=== PATIENT | female | born 1970 | race African-American/Black ===

== ENCOUNTER 2017-07-15 20:34 | Emergency (ER) | payer MEDICAID, OTHER ==
[~2017-07-15] VITALS: Ht 172.7 cm; Wt 123.4 kg
[2017-07-15] MEDS ORDERED: INSULIN SQ (20:51)
[2017-07-15] MEDS ORDERED: METFORMIN HCL1000 M1 ORAL (20:51)
[2017-07-15] MEDS ORDERED: GLIPIZIDE5 MG ORAL (20:51)
[2017-07-15 21:05] VITALS: BP 136/87
--- NOTE | 2017-07-15 21:11 | Emergency Room Report ---
History of Present Illness General Chief Complaint: Skin Rash/Abscess Source: Patient Present Illness HPI Patient presented for evaluation of left back lesion Patient reports that she had the area incised and packed on Saturday At any other facility Patient is on antibiotics which include Bactrim Patient reports that she had accidentally pulled on the packing and wasn't sure the status of the packing Pain is 5/10 with touch otherwise denies any fevers Patient also reported whitish discharge on her tongue which at this time is not present Denies any neck pain or photophobia Allergies: Coded Allergies: No Known Allergies (Unverified , 07/15/17) Patient History Past Medical History: see triage record Pertinent Family History: none Last Menstrual Period: menopause Reviewed Nursing Documentation: PMH: Agreed, PSxH: Agreed Nursing Documentation-PMH Hx Diabetes: Yes Review of Systems All Other Systems: negative except mentioned in HPI Physical Exam Vital Signs Date Time Temp Pulse Resp B/P (MAP) Pulse Ox O2 Delivery O2 Flow Rate FiO2 07/15/17 20:44 98.1 95 18 136/87 98 Room Air Sp02 EP Interpretation: reviewed, normal General Appearance: well appearing, no apparent distress Head: normocephalic, atraumatic Eyes: bilateral eye PERRL, bilateral eye EOMI ENT: normal pharynx, no angioedema Neck: supple Respiratory: lungs clear, normal breath sounds Cardiovascular #1: regular rate, rhythm, no edema Gastrointestinal: non tender Musculoskeletal: normal inspection Neurologic: alert, oriented x3, responsive Skin: other - Small indurated area with central incision and packing in place, mild fluctuance is noted just around the packing area however otherwise soft to touch. Area is approximately 1 x 1.5 cm Lymphatic: no adenopathy Medical Decision Making Diagnostic Impression: Primary Impression: Abscess Additional Impression: Incised wound ER Course The area is healing well Patient appears to have had incision and drainage of the abscess I did add Keflex to her regimen of antibiotics And the patient was stable for close followup Last Vital Signs Date Time Temp Pulse Resp B/P (MAP) Pulse Ox O2 Delivery O2 Flow Rate FiO2 07/15/17 21:05 98.1 95 18 136/87 98 Room Air Status: unchanged Disposition: HOME, SELF-CARE Condition: Improved Scripts Nystatin* (NYSTATIN*) 100,000 Unit/1 Ml Oral.susp 5 ML ORAL FOUR TIMES A DAY for 7 Days, ML Swish in the mouth and retain for as long as possible (several minutes) before swallowing Prov: KAREN PUENTE D.O. 07/15/17 Cephalexin* (KEFLEX*) 500 Mg Capsule 500 MG ORAL Q6H, #28 CAP 0 Refills Prov: KAREN PUENTE D.O. 07/15/17 Referrals: [facility],REFERRING (PCP) Additional Instructions: Patient is provided with the discharge instructions notified to follow up with primary doctor in the next 2-3 days otherwise return to the er with any worsening symptoms. Please note that this report is being documented using [employer] technology. This can lead to erroneous entry secondary to incorrect interpretation by the dictating instrument. KAREN PUENTE D.O. Jul 15, 2017 21:11
[2017-07-15] MEDS ORDERED: KEFLEX500 MG ORAL (21:13)
[2017-07-15] MEDS ORDERED: NYSTATIN100000 UN1 ORAL (21:13)
[2017-07-15] MEDS ORDERED: Bacitracin Oint UD TOPIC ONE (21:14)
[2017-07-15 21:18] VITALS: BP 136/87
== END 2017-07-15 21:18 | disposition home or self-care (01) ==
LOC: EMR 21:00
DX: L02.212 Cutaneous abscess of back [any part, except buttock and flank] (principal); E11.9 Type 2 diabetes mellitus without complications; Z48.01 Encounter for change or removal of surgical wound dressing
CPT/HCPCS: 99283

== ENCOUNTER 2017-07-22 22:23 | Emergency (ER) | payer MEDICAID ==
[~2017-07-22] VITALS: Ht 172.7 cm; Wt 122.5 kg
[~2017-07-22 22:23] MED LIST: GLIPIZIDE5 MG ORAL; INSULIN SQ; KEFLEX500 MG ORAL; METFORMIN HCL1000 M1 ORAL; NYSTATIN100000 UN1 ORAL
[2017-07-22 22:43] VITALS: BP 114/69
[2017-07-22 22:44] VITALS: BP 122/66
--- NOTE | 2017-07-22 22:50 | Emergency Room Report ---
History of Present Illness General Chief Complaint: Wound Recheck/Suture Removal Source: Patient Present Illness HPI Patient has packing in place Had incision and drainage performed earlier in the month at another facility Patient presents for reevaluation After discussing with her patient reports that she has not seen anyone since she was here Patient was discussed regarding outpatient care She reports that she did change the dressing Denies any fevers Feels that the area feels improved Allergies: Coded Allergies: No Known Allergies (Unverified , 07/15/17) Patient History Past Medical History: see triage record Pertinent Family History: none Reviewed Nursing Documentation: PMH: Agreed, PSxH: Agreed Nursing Documentation-PMH Hx Diabetes: Yes Review of Systems All Other Systems: negative except mentioned in HPI Physical Exam Vital Signs Date Time Temp Pulse Resp B/P (MAP) Pulse Ox O2 Delivery O2 Flow Rate FiO2 07/22/17 22:26 97.9 107 18 114/69 96 Room Air Sp02 EP Interpretation: reviewed, normal General Appearance: well appearing, no apparent distress Head: normocephalic, atraumatic Eyes: bilateral eye PERRL, bilateral eye EOMI ENT: hearing grossly normal, normal pharynx Neck: full range of motion Respiratory: lungs clear Cardiovascular #1: regular rate, rhythm Gastrointestinal: non tender, soft Musculoskeletal: normal inspection, other - Packing was still in place, the area feels appropriate no fluctuance is palpated, Neurologic: oriented x3, responsive Skin: other - as above Lymphatic: no adenopathy Medical Decision Making Diagnostic Impression: Primary Impression: wound check ER Course The packing was removed Patient tolerated the procedure well There was some discharge on the gauze that the patient has And she'll continue dressing changes and that area appears appropriate Last Vital Signs Date Time Temp Pulse Resp B/P (MAP) Pulse Ox O2 Delivery O2 Flow Rate FiO2 07/22/17 22:44 97.9 84 18 122/66 98 Room Air Status: improved Disposition: HOME, SELF-CARE Condition: Improved Patient Instructions: Wound Check Additional Instructions: Patient is provided with the discharge instructions notified to follow up with primary doctor in the next 2-3 days otherwise return to the er with any worsening symptoms. Please note that this report is being documented using [employer] technology. This can lead to erroneous entry secondary to incorrect interpretation by the dictating instrument. KAREN PUENTE D.O. Jul 22, 2017 22:50
== END 2017-07-22 22:45 | disposition home or self-care (01) ==
LOC: EMR 22:44
DX: L02.91 Cutaneous abscess, unspecified (principal); Z48.01 Encounter for change or removal of surgical wound dressing; E11.9 Type 2 diabetes mellitus without complications
CPT/HCPCS: 99281

== ENCOUNTER 2017-11-24 00:54 | Emergency (ER) | payer MEDICAID, OTHER ==
[~2017-11-24] VITALS: Ht 172.7 cm; Wt 99.8 kg
[2017-11-24 01:20] VITALS: BP 134/84
--- NOTE | 2017-11-24 01:27 | Emergency Room Report ---
History of Present Illness General Chief Complaint: Skin Rash/Abscess Source: Patient Present Illness HPI 46 old female, history of HIV on treatment, last CD4 count was normal and measured within the last 6 months, also has a history of diabetes, presenting with 3 days of swelling to right middle finger, noticed lump that is painful. No other complaints Allergies: Coded Allergies: No Known Allergies (Unverified , 07/15/17) Patient History Past Medical History: see triage record Past Surgical History: none Pertinent Family History: none Last Menstrual Period: none Now: No : 0 Para: 0 Reviewed Nursing Documentation: PMH: Agreed; PSxH: Agreed Nursing Documentation-PMH Hx Cardiac Problems: No - HIV + Hx Diabetes: Yes Review of Systems All Other Systems: negative except mentioned in HPI Physical Exam Vital Signs Date Time Temp Pulse Resp B/P (MAP) Pulse Ox O2 Delivery O2 Flow Rate FiO2 11/24/17 01:10 98.6 100 18 134/84 97 Room Air 98.6 Sp02 EP Interpretation: reviewed, normal General Appearance: normal inspection, well appearing, no apparent distress, alert, GCS 15, non-toxic Head: normocephalic, atraumatic Eyes: bilateral eye normal inspection, bilateral eye PERRL, bilateral eye EOMI ENT: normal ENT inspection, normal pharynx, normal voice, moist mucus membranes Neck: normal inspection, full range of motion, supple Respiratory: normal inspection, lungs clear, normal breath sounds, no respiratory distress, no retraction, no wheezing, speaking full sentences, chest symmetrical Cardiovascular #1: normal inspection, regular rate, rhythm, no edema, normal capillary refill Cardiovascular #2: 2+ radial (R), 2+ radial (L) Gastrointestinal: normal inspection, non tender, soft, non-distended, no guarding Musculoskeletal: other - Right middle finger with indurated 2 x 2 centimeter abscess on the proximal phalanx, dorsal region, some purulent discharge noted, No fusiform swelling no tenderness along the tendon sheath, able to extend and flex finger without issue Neurologic: normal inspection, alert, oriented x3, responsive, motor strength/ tone normal, sensory intact, normal gait, speech normal Psychiatric: normal inspection, judgement/insight normal, memory normal Skin: normal inspection, normal color, no rash, warm/dry, well hydrated, normal turgor Procedures Incision and Drainage Incision and Drainage : Consent: Verbal Blade Size: 11 I & D Procedure: betadine prep, sterile drapes applied, sterile dressing applied, gauze wick placed Wound Location: other - R middle finger Anesthesia: 1% Lidocaine Volume Anesthetic (ccs): 2 Patient Tolerated: Well Complications: None Progress 1cc purulent drainage Medical Decision Making Diagnostic Impression: Primary Impression: Abscess of finger ER Course 46-year-old female p/w bump/swelling to right middle finger DDX: abscess Plan: Incision and drainage, DC home with ABX ER course: Incision and drainage performed. No complications Disposition: Patient discharged to home with keflex and doxycycline. Patient instructed to follow up in ED or primary care doctor's office to wound recheck in 48 hours without fail. Patient cautioned to return to ED if there is rapid spread of rash, high fever or chills. Patient verbalized understanding and agrees with plan. Please note that this Emergency Department Report was dictated using [employer] diabetes technology software, occasionally this can lead to erroneous entry secondary to interpretation by the dictation equipment. Last Vital Signs Date Time Temp Pulse Resp B/P (MAP) Pulse Ox O2 Delivery O2 Flow Rate FiO2 11/24/17 01:10 98.6 100 18 134/84 97 Room Air 98.6 Disposition: HOME, SELF-CARE Condition: Improved Scripts Doxycycline Monohydrate* (DOXYCYCLINE MONOHYDRATE*) 100 Mg Capsule 100 MG ORAL Q12H for 7 Days, #14 CAP 0 Refills Prov: Ivett Morataya M.D. 11/24/17 Cephalexin* (KEFLEX*) 500 Mg Capsule 500 MG ORAL Q6H for 7 Days, #28 CAP 0 Refills Prov: Ivett Morataya M.D. 11/24/17 Patient Instructions: Abscess Ivett Morataya M.D. Nov 24, 2017 01:27
[2017-11-24] MEDS ORDERED: DOXYCYCLINE MO100 MG ORAL (01:28)
[2017-11-24] MEDS ORDERED: KEFLEX500 MG ORAL (01:28)
[2017-11-24] MEDS ORDERED: Lidocaine 1% MPF 10mg/ml 5ml INJ ONE (01:30)
[2017-11-24 01:58] VITALS: BP 134/84
== END 2017-11-24 01:58 | disposition home or self-care (01) ==
LOC: EMR 01:29
DX: L02.511 Cutaneous abscess of right hand (principal); E11.9 Type 2 diabetes mellitus without complications
CPT/HCPCS: 10060; 99284

== ENCOUNTER 2018-09-17 23:11 | Emergency (ER) | payer MEDICAID ==
[~2018-09-17] VITALS: Ht 175.3 cm; Wt 86.6 kg
[~2018-09-17 23:11] MED LIST changes: +DOXYCYCLINE MO100 MG ORAL
--- NOTE | 2018-09-17 23:43 | NUR ---
ED Nurse Note: per pt she has abscess on her sacral region and her right inner thigh pt has hx of diabetes pain 05/21
[2018-09-17 23:48] VITALS: BP 144/95
[2018-09-18] MEDS ORDERED: CEPHALEXIN500 MG ORAL (00:33)
[2018-09-18] MEDS ORDERED: BACTRIM DS TAB1 EAC1 ORAL (00:33)
[2018-09-18 00:37] VITALS: BP 144/95
--- NOTE | 2018-09-18 00:37 | NUR ---
ED Nurse Note: Pt claered DC by LOIDA. Pt is AO x 4times, VSS, on room air no distress ID bend removed. PT TOOK A;LL BELONGINGS Pt. DC and Meds instructions given to Pt, Pt VERBALIZED UNDERSTANFINF. Pt walked out unit with steady gait. PT WITH FAMILY MEMBER
--- NOTE | 2018-09-18 05:59 | Emergency Room Report ---
History of Present Illness General Chief Complaint: General Complaint Source: Family Member Present Illness HPI 47-year-old female presents ED for evaluation area brought in by family. Noted to have a abscess on her lower back. Hard, painful, 8 out of 10, nonradiating. Also notes one on her right thigh. Started 3 days ago. Denies fevers or chills. Denies any discharge. Has had similar abscesses in the past. No other aggravating relieving factors. Denies any other associated symptoms Allergies: Coded Allergies: No Known Allergies (Unverified , 07/15/17) Patient History Past Medical History: DM Past Surgical History: none Pertinent Family History: none Social History: Denies: smoking, alcohol use, drug use Now: No Immunizations: UTD Reviewed Nursing Documentation: PMH: Agreed; PSxH: Agreed Nursing Documentation-PMH Past Medical History: No History, Except For Hx Diabetes: Yes Review of Systems All Other Systems: negative except mentioned in HPI Physical Exam Vital Signs Date Time Temp Pulse Resp B/P (MAP) Pulse Ox O2 Delivery O2 Flow Rate FiO2 09/17/18 23:43 98.8 105 17 144/95 99 09/17/18 23:48 Room Air Sp02 EP Interpretation: reviewed, normal General Appearance: no apparent distress, alert, GCS 15, non-toxic Head: normocephalic Eyes: bilateral eye normal inspection, bilateral eye PERRL ENT: normal ENT inspection Neck: normal inspection Respiratory: normal inspection Cardiovascular #1: normal inspection Gastrointestinal: normal inspection Rectal: deferred Genitourinary: no CVA tenderness Musculoskeletal: normal inspection Neurologic: alert, oriented x3, responsive, motor strength/tone normal, sensory intact, speech normal Psychiatric: normal inspection Skin: other - area of induration/swelling to lower back, R thigh. no fluctuance. no discharge. Lymphatic: normal inspection Medical Decision Making Diagnostic Impression: Primary Impression: Abscess ER Course Hospital Course 47-year-old female presents to ED with pain, swelling to lower back, R thigh Differential diagnoses include: Cellulitis, dermatitis, insect bite, abscess Clinical course Patient placed on stretcher. After initial history, physical exam reveals a female in no acute distress. On exam there is a site for mild erythema and induration just above the buttock on right. also to R thigh. There is no fluctuance. There is mild tenderness. Consideration for abscess. But not fluctuant. Not amenable to drainage at this time. Discussed with family member. We will attempt conservative therapy at this time with warm compresses with antibiotics. She agrees. Safe for discharge or close outpatient follow-up. Patient has a PMD Diagnosis - abscess stable and discharged to home with prescription for bactrim, Keflex. warm compresses. Instructed to followup with PMD. Instructed return to ED if symptoms recur or worsen Last Vital Signs Date Time Temp Pulse Resp B/P (MAP) Pulse Ox O2 Delivery O2 Flow Rate FiO2 09/18/18 00:37 98.8 105 17 144/95 99 Room Air Status: improved Disposition: HOME, SELF-CARE Condition: Stable Scripts Trimethoprim/Sulfamethoxazole 160/800* (BACTRIM DS TABLET*) 1 Each Tablet 1 TAB ORAL Q12H, #14 TAB 0 Refills Prov: Mitchell Cullen MD 09/18/18 Cephalexin* (KEFLEX*) 500 Mg Capsule 500 MG ORAL EVERY 6 HOURS for 7 Days, CAP Prov: Mitchell Cullen MD 09/18/18 Referrals: [facility],REFERRING (PCP) Patient Instructions: Abscess Additional Instructions: warm soaks. take antibiotics as prescribed. followup with PMD. return to ED if symptoms recur/worsen. Mitchell Cullen MD Sep 18, 2018 05:59
== END 2018-09-18 00:37 | disposition home or self-care (01) ==
LOC: EMR 23:53
DX: L02.31 Cutaneous abscess of buttock (principal); L02.415 Cutaneous abscess of right lower limb; E11.9 Type 2 diabetes mellitus without complications
CPT/HCPCS: 99282